=== PATIENT | female | born 1995 | race Caucasian/White ===

== ENCOUNTER 2024-07-21 08:39 | Emergency (ER) | payer BC ==
[~2024-07-21] VITALS: Ht 175.3 cm; Wt 121.1 kg
[2024-07-21 08:40] VITALS: PULSE 98; RESP 18; TEMP 99; O2SAT 96
[2024-07-21] MEDS ORDERED: AUGMENTIN 500-1 EACH PO (09:30)
[2024-07-21] MEDS: AMOXICILLIN/CLAVULANATE K 500 MG TAB PO ONE (09:49)
[2024-07-21] MEDS: ACETAMINOPHEN 325 MG TAB PO ONE (09:53)
[2024-07-21] MEDS: AMOXICILLIN/CLAVULANATE K 875 MG TAB PO STA (09:53)
== END 2024-07-21 09:52 | disposition home or self-care (01) ==
LOC: FSED 09:20
DX: J02.0 Streptococcal pharyngitis (principal); E03.9 Hypothyroidism, unspecified; Z11.52 Encounter for screening for COVID-19
CPT/HCPCS: 0223U; 83518; 87400; 99284